=== PATIENT | male | born 1945 | race Caucasian/White ===

== ENCOUNTER 2020-09-18 13:49 | Outpatient (RCR) | payer MEDICARE, SELFPAY ==
--- NOTE | 2020-09-18 15:51 | PCPTNOTE ---
Patient:Scott Jaimes Jr. Date of :1945 Wheelchair seating assessment Thank you for [facility] this [facility]. The patient has been evaluated for wheelchair seating and recommendations have been made. Assistance for ordering the equipment from [employer] as the DME provider. The findings have been scanned into the patient's EMR. Please review, sign, date and return this recognition of care provided. I agree with and certify that the following plan for DME equipment is medically necessary. Dr. Jerome Bolivar date
== END 2020-09-19 11:02 | disposition home or self-care (01) ==
LOC: ANHPT 13:49
PROVIDERS: PCP Internal Medicine; Visit Provider Internal Medicine
DX: R26.9 Unspecified abnormalities of gait and mobility (principal)
CPT/HCPCS: 97163

== ENCOUNTER 2023-04-30 16:56 | Outpatient (CLI) | payer MEDICARE, SELFPAY ==
--- NOTE | ~2023-04-30 | XR_ITS ---
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 The radiographic findings are consi stent with multifocal gout. There is osteopenia with juxta-articular prominence.. No fracture or dislocation or periosteal reaction is noted. There is a small metallic foreign body at the dorsal mid second digit posterior to the base of the mi ddle phalanx. Prominent radial artery calcification. IMPRESSION: Multifocal gout Reviewed, dictated and finalized at location L. R WORKER IMPRESSION: Multifocal gout
== END 2023-04-30 16:57 | disposition home or self-care (01) ==
PROVIDERS: PCP Internal Medicine; Visit Provider Plastic Surgery
DX: M86.141 Other acute osteomyelitis, right hand (principal)
CPT/HCPCS: 73140

== ENCOUNTER 2023-06-09 14:48 | Outpatient (CLI) | payer MEDICARE, SELFPAY ==
--- NOTE | ~2023-06-09 | XR_ITS ---
XR elbow RT min 3V DATE: 06/09/2023 15:10 INDICATION: Draining bursa TECHNIQUE: 3 views COMPARISON: None FINDINGS: There is prominent soft tissue swelling at the dorsum of the elbow in the region of the ole cranon bursa. Minimal dorsal olecranon process spurring. Diffuse osteopenia. No fracture, dislocation, periosteal reaction or bone destruction is detected. No elbow joint effusion is evident. Prominent arterial calcification, suggesting diabetes. IMPRESSION: Prominent dorsal soft tissue swelling Osteopenia Arterial calcification, suggesting diabetes Reviewed, dictated and finalized at location L. HIATRY PHYSICIAN
== END 2023-06-09 14:49 | disposition home or self-care (01) ==
LOC: ANHIMG 14:49
PROVIDERS: PCP Internal Medicine; Visit Provider Plastic Surgery
DX: M86.121 Other acute osteomyelitis, right humerus (principal)
CPT/HCPCS: 73080

== ENCOUNTER 2023-08-04 07:06 | Outpatient (RCR) | payer MEDICARE, SELFPAY ==
[2023-05-08 14:20] VITALS: BMI 34.2
--- NOTE | 2023-07-14 13:53 | PCWOUND ---
WOCN NOTE Appointment cancelled for today, patient still in the hospital due to fluid overload. Per his , they will contact wound center to reschedule.
== END 2023-08-06 23:59 | disposition home or self-care (01) ==
LOC: ANHWOC 07:06
PROVIDERS: PCP Internal Medicine; Visit Provider Plastic Surgery
DX: E11.621 Type 2 diabetes mellitus with foot ulcer (principal); L97.429 Non-pressure chronic ulcer of left heel and midfoot with unspecified severity
CPT/HCPCS: 99213; 99214; G0463

== ENCOUNTER 2023-10-12 12:58 | Outpatient (RCR) | payer MEDICARE, SELFPAY | END 2023-12-29 09:22 | disposition home or self-care (01) | LOC: ANHWOC 12:58 | PROVIDERS: PCP Internal Medicine; Visit Provider Plastic Surgery | DX: E11.621 Type 2 diabetes mellitus with foot ulcer (principal); L97.429 Non-pressure chronic ulcer of left heel and midfoot with unspecified severity | CPT/HCPCS: 99213; G0463 ==